=== PATIENT | male | born 1985 | race Caucasian/White ===

== ENCOUNTER 2017-09-18 09:41 | Inpatient (IN) | payer OTHER ==
[~2017-09-18] VITALS: Ht 177.8 cm; Wt 77.1 kg
--- NOTE | 2017-09-18 15:15 | NUR ---
09/18/17 1515 Shira Clay PATIENT ARRIVES TO PACU AWAKE, BUT DROWSY, SLOW TO RESPOND TO QUESTIONS, BUT RESPONDS APPROPRIATELY. RESP EVEN AND UNLABORED, ARRIVES TO PACU ON ROOM AIR.
--- NOTE | 2017-09-18 16:25 | NUR ---
PATIENT TO FLOOR AT ABOUT 1540 VIA STRETCHER. TRANSFER TO BED BY SELF. PATIENT IS A LITTLE DROWZY BUT ALERT AND ORIENTED. PATIENT RATED HIS PAIN AT 4/10 AND DENIES NAUSEA. VS TAKEN AND WNL. NO APPARENT DISTRESS NOTED. PATIENT ORIENTED TO ROOM.ICE WATER AND JUICE GIVEN. PULSE OXYMETER ON. CALL LIGHT IN REACH. WILL CONTINUE TO MONITOR.
--- NOTE | 2017-09-18 16:35 | NUR ---
MED REC COMPLETE, PATIENT TAKES NO HOME MEDICATIONS.
--- NOTE | 2017-09-18 16:45 | NUR ---
PT IS SITTING UP IN BED WITH CALL LIGHT IN REACH. PT HAD A LOW GRADE TEMP, PT WAS REMINDED TO TAKE DEEP BREATHS AND USE HIS IS. PT ASKED IF HE COULD HAVE SOME CHICKEN BROTH.
--- NOTE | 2017-09-18 17:10 | NUR ---
PATIENT WAS MEDICATED BY MENDEZ POTTS. RESTING IN BED AT THIS TIME. NO APPARENT DISTRESS NOTED.
--- NOTE | 2017-09-18 19:05 | NUR ---
PATIENT HAD DONE WELL THIS PM. TOLERATED REGULAR FOOD WELL. NO NAUSEA. REINFORCED DRESSING OVER UMBULIC AND PUBIC SITE. PATIENT VOID QS. NO FEVER. PAIN AT ACCEPTABLE LEVEL. MAY DC TOMORROW
--- NOTE | 2017-09-18 19:10 | NUR ---
SHIFT REPORT RECEIVED. PATIENT RESTING IN BED. HE HAS BEEN EATING SOME OF HIS DINNER. STATES HE HAS NO NAUSEA BUT HAS BEEN EATING SLOWLY. PAIN IS 4/10, WHICH HE SAYS IS TOLLERABLE. FAMILY IN ROOM, PATIENT IS MAKING JOKES AN LAUGHING. APPEARS COMFORTABLE. LAP SITES ARE COVERED WITH GAUZE AND SURGICAL TAPE, SMALL AMOUNT OF SHADOWING NOTED AT UMBILICAL SITE.
--- NOTE | 2017-09-18 20:40 | NUR ---
PATIENT UP TO WALK THE HALLWAY, MADE TWO LAPS. STEADY ON HIS FEET. NO DIZZINESS. RETURNED TO ROOM DUE TO FEELING SORE.
--- NOTE | 2017-09-18 21:24 | NUR ---
Rounding charge nurse note: [place], watching tv, no c.o pain. Abd sites intact, ivf infusing w/o problems, walked hallways w/o help x2 up and around nursing station, tolerated very well
--- NOTE | 2017-09-18 21:26 | NUR ---
EVENING MEDS GIVEN PER ORDER. PATIENT REQUESTING PAIN MEDS FOR ABD PAIN 12/30. PO PERCOCET PROVIDED. PATIENT IS ALERT, VS WNL. TOLERATING ROOM AIR. HAS BEEN PASSING GAS. LAP SITE WNL, NO NEW DRAINAGE. BOWEL SOUNDS ACTIVE. ABD MILDLY DISTENDED. NO NAUSEA. ATE 100% OF HIS DINNER. IV FLUIDS INFUSING PER ORDER, SITE WNL. SCDS IN USE.
--- NOTE | 2017-09-18 22:20 | NUR ---
PATIENT CONTINUES TO REPORT 7/10 PAIN AND APPEARS UNCOMFORTABLE. SECOND TAB OF PERCOCET PROVIDED. PATIENT HAS VAPE PEN SITTING ON HIS BEDSIDE TABLE. RN NOTIFIED HIM OF THE HOSPITALS "NO SMOKING" POLICY, EVEN IF IT IS ELECTRIC. HE STATES "I KNOW, SOMEONE JUST DROPPED IT OFF." RN MOVED IT TO THE CLOSET FOR SAFE KEEPING.
--- NOTE | 2017-09-19 00:51 | NUR ---
PATIENT APPEARS TO BE SLEEPING SOUNDLY. RR 16.
--- NOTE | 2017-09-19 01:50 | NUR ---
PATIENT APPEARED TO BE SLEEPING. AWOKE EASILY TO VOICE. VS COMPLETED, WNL. PATIENT UP TO THE BATHROOM. OUTPUT QS. PATIENT REPORTS SOME DISCOMFORT WITH URINATION, POSSIBLY FROM OLIVER PLACEMENT DURING SURGERY. DRESSING ARE INTACT ON ABD LAP SITE, SMALL AMOUNT OF NEW DRAINAGE NOTED ON UMBILICAL SITE. PATIENT REPORTS GOOD PAIN CONTROL. SCDS IN USE. IV FLUIDS INFUSING, SITE WNL. NO OTHER NEEDS AT THIS TIME.
--- NOTE | 2017-09-19 05:00 | NUR ---
PATIENT REPORTS 7/10 PAIN. PRN PERCOCET PROVIDED. PATIENT DENIES TOILETING NEEDS AT THIS TIME.
--- NOTE | 2017-09-19 05:52 | NUR ---
PATIENT SLEPT MOST OF THE NIGHT. PAIN CONTROLLED WITH PERCOCET X2. NO NAUSEA. ABD IS SOFT, TENDER, AND BOWEL SOUNDS ARE ACTIVE. LAP SITES WERE REENFORCED WITH GAUZE, UMBILICAL SITE HAS SMALL AMOUNT OF NEW DRAINAGE. ORAL INTAKE HAS BEEN GOOD. PATIENT TOELRATED REGULAR DINNER. AMBULATED IN THE HALLWAYS. IV FLUIDS INFUSING. URINE OUTPUT QS. PATIENT REPORTS PASSING GAS.
--- NOTE | 2017-09-19 06:44 | NUR ---
SPOKE WITH ABOUT PATIENT'S CONDITION. NEW ORDERS TO PATIENT.
--- NOTE | 2017-09-19 07:32 | NUR ---
SHIFT REPORT RECEIVED AT BEDSIDE FROM GREGORY. PATIENT AWAKE, A&O RESTING IN BED. REPORTED MILD PAIN, NO NAUSEA. BREAKFAST ORDER. CALL LIGHT IN REACH.
--- NOTE | 2017-09-19 08:20 | NUR ---
PATIENT LAYING IN BED WATCHING TV. SLOWLY EATING HIS BREAKFAST. SET UP FOR SHOWER. SAID HE WOULD LIKE TO TAKE A SHOWER IF OK WITH NURSE.
--- NOTE | 2017-09-19 10:26 | NUR ---
TALKED TO DR HUDDLESTON ABOUT PATIENT TAKING A SHOWER TODAY. SAID NO SHOWER TODAY.
--- NOTE | 2017-09-19 10:44 | NUR ---
PATIENT RESTING IN BED, REPORT MILD PAIN AT THIS TIME. NO NAUSEA.CALL LIGHT IN REACH.
--- NOTE | 2017-09-19 12:06 | NUR ---
DISCUSSED WITH PATIENT AND IMPORTANCE OF HAVING A PCP. PATIENT STATES HE DOES WANT TO FIND ONE. INFORMATION GIVEN WITH CONTACT NUMBERS FOR SEVERAL CLINICS IN [facility]. DISCUSSED HOW TO CALL AND ARRANGE NEW PATIENT APPOITNTMENTS. BOTH STATE UNDERSTANDING. NO OTHER QUESTIONS AT THIS TIME.
--- NOTE | 2017-09-19 12:58 | NUR ---
PATIENT SITTING IN BED EATING LUNCH. REPORTS PAIN WITH COUGHING. DENIES NAUSEA. MILD SOB. STILL ON ROOM AIR.
--- NOTE | 2017-09-19 13:01 | NUR ---
PATIENT WAS UP WALKING IN THE HALLWAY. BACK TO ROOM AND SITTING IN THE CHAIR. PATIENT REPORTS 8/10 PAIN AT THE INCISION SITE. PATIENT WAS MEDICATED. EATING LUNCH AT THIS TIME. WILL CONTINUE TO MONITOR. CALL LIGHT IN REACH.
--- NOTE | 2017-09-19 14:33 | NUR ---
AARON HUDDLESTON WAS IN ROOM TO EVALUATE PATIENT. PLAN TO D/C PATIENT HOME TODAY.
[2017-09-19] MEDS ORDERED: OXYCODON-ACETA1 EAC2 PO (14:35)
[2017-09-19] MEDS ORDERED: MOTRIN IB200 MG PO (14:35)
[2017-09-19] MEDS ORDERED: TYLENOL325 MG PO (14:35)
[2017-09-19] MEDS ORDERED: ACETAMINOP80 MG/0.8 PO (14:35)
--- NOTE | 2017-09-19 15:03 | NUR ---
PATIENT SITTING UP IN BED, EATING LUNCH. RN JOCELENE IN GOING OVER DISCHARGE ORDERS. PHARMACIST IN . CALL LIGHT IN R.
--- NOTE | 2017-09-21 12:47 | HP ---
[facility] [address], [place] [address] Signed ADMISSION DATE: 09/18/2017 REASON FOR ADMISSION: Closed-loop obstruction of bowel. HISTORY: This is a 31-year-old white man had a fair amount of heavy drinking on Friday (today is ) and on Friday morning was feeling rather poorly. He has essentially had a "hangover." By Friday, he was having abdominal pain in the left upper and epigastric area of the abdomen, which did not improve. He had nausea, vomiting, and so forth. He presented to the emergency room where he was evaluated by Dr. Orlando and CT scan was performed, which shows probable small bowel obstruction with closed loop in the left upper abdomen. Of note, he has never had abdominal surgery in the past. PAST MEDICAL HISTORY: Does include apparent testicular torsion, which was resolved without operative intervention. He also has had tonsillectomy. He last ATE anything significant on Friday. He has been given some fluids and Zosyn antibiotic. MEDICATIONS: At time of admission include Pepto-Bismol and ibuprofen. ALLERGIES: He has no known drug allergies. SOCIAL HISTORY: He is . He has 2 children. 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 REVIEW OF SYSTEMS: He denies any shortness of breath or chest pain. He has had no dysphagia or dysuria. Denies any hematemesis. Has had nausea and vomiting. PHYSICAL EXAMINATION: GENERAL: A thin and healthy-appearing white male with a berg. HEENT: Trachea is midline. Mucous membranes are slightly dry. CHEST: Clear. Electronically Signed By: ELODIA HUDDLESTON MD 09/21/17 1247 PATIENT NAME: CAROL ANN CASTANEDA HISTORY AND PHYSICAL DATE OF : [birth year] REPORT #: [id number] PHYSICIAN: ELODIA HUDDLESTON MD PCP: NO PRIMARY CARE PHYSICIAN REPORT IS CONFIDENTIAL AND NOT TO BE RELEASED WITHOUT AUTHORIZATION [facility] [address], [place] [address] Signed HEART: Regular without murmur. ABDOMEN: Scaphoid, flat, and nontender largely although mild tenderness in the left upper abdomen. There is no ascites. EXTREMITIES: Show no clubbing, cyanosis, or edema. LABORATORY DATA: Show white count of 10.5, hematocrit 41.4, platelets 279,000. Chem profile essentially normal. Glucose is 103. Liver enzymes normal. Lipase, amylase normal. Urinalysis shows specific gravity of 1.020, pH of 7, otherwise normal. I have reviewed the CT scan. The report is reviewed as well. Interpretation by Dr. Liz Sheikh include some mild dilation with air-fluid levels. Several segments of small bowel localized in the upper abdomen associated with a swirling of the mesenteric vessel. This is considered that consistent with closed-loop obstruction versus localized volvulus. It is peculiar that he would have such a finding without prior operative intervention (adhesions, etc.), but other causes can be present including congenital causes adhesive bands and enteric diverticula and other unusual causes. I have recommended expedient resuscitation and laparoscopy, possible laparotomy to remedy the problem whatever its cause might be. I discussed with him the risks of bleeding, infection, need for open procedure and other unforeseen complications related to operation. He understands and wished to proceed. Elodia Huddleston MD JM/MODL /[id number] cc: Ousmane Orlando DO Copies: OUSMANE ORLANDO DO ~ Electronically Signed By: ELODIA HUDDLESTON MD 09/21/17 1247 PATIENT NAME: CAROL ANN CASTANEDA LISSET HISTORY AND PHYSICAL DATE OF : [birth year] REPORT #: [id number] PHYSICIAN: ELODIA HUDDLESTON MD PCP: NO PRIMARY CARE PHYSICIAN REPORT IS CONFIDENTIAL AND NOT TO BE RELEASED WITHOUT AUTHORIZATION
--- NOTE | 2017-09-21 12:47 | DS ---
[facility] [address], [place] [address] Signed ADMISSION DATE: 09/18/2017 DISCHARGE DATE: 09/19/2017 REASON FOR ADMISSION: This 31-year-old white man is admitted with suspicion of internal hernia, possibly segmental volvulus, and was admitted for further evaluation and care. He was drinking rather heavily on Friday and by Friday morning was feeling quite poorly. He essentially had a "hangover." On Friday, he was having abdominal pain in the left upper and epigastric area of the abdomen, which did not improve. He had nausea, vomiting, and so forth. He ultimately presented to the emergency room and was evaluated by Dr. Ousmane Orlando . A CT scan was performed showing what appeared to be a "swirl sign" of mesenteric blood vessels in the left upper abdomen. He did have dilated loops of bowel as well. He was considered possible to have internal hernia or other cause of segmental volvulus and on that basis, emergency admission was deemed appropriate. PERTINENT PHYSICAL EXAMINATION: GENERAL: Show a pleasant white man, who had a thick berg. HEENT: Mucous membranes are slightly dry. CHEST: Clear. HEART: Regular without murmur. ABDOMEN: Flat and scaphoid and nontender. Largely, he did have mild tenderness in the left upper abdomen. There is no ascites. LABORATORY DATA: White count was 10.5, hematocrit 41.4, and platelets 279,000. Chem profile normal. Glucose 103. Liver enzymes normal. Lipase and amylase were normal. Urinalysis was essentially normal. I reviewed the CT scan with Dr. Sheikh, radiologist and the findings as described were noted. HOSPITAL COURSE: He was aggressively fluid resuscitated, given broad-spectrum antibiotic Zosyn and readied for operation. He was taken emergently to operation, where he underwent laparoscopy. He did have segments of small bowel that appeared to be inflamed consistent with serositis, particularly in the upper small bowel, but careful running of the bowel from the terminal ileum proximally to the ligament of Treitz showed no evidence of volvulus or segmental vascular compromise in any way and no sign of internal hernia. Electronically Signed By: ELODIA HUDDLESTON MD 09/21/17 1247 PATIENT NAME: CAROL ANN CASTANEDA DISCHARGE SUMMARY DATE OF : [birth year] REPORT #: [id number] PHYSICIAN: ELODIA HUDDLESTON MD PCP: NO PRIMARY CARE PHYSICIAN REPORT IS CONFIDENTIAL AND NOT TO BE RELEASED WITHOUT AUTHORIZATION [facility] [address], [place] [address] Signed The appendix was somewhat injected and on that basis was resected. He promptly had marked improvement to his clinical situation after operation. He was able to eat right away, showed no evidence of problem and is ready for discharge at this time. It is noted that the appendix that was resected, although it was injected, did not have suppuration particularly. It was opened as there was a palpable fecalith in it.Indeed a hard fecalith was seen. Photographs were taken confirming that finding. DISCHARGE MEDICATIONS: His discharge medications will include: 1. Percocet 7.5/325, 1 to 2 p.o. q.4 hours p.r.n. pain, #14. 2. Ibuprofen 600 mg p.o. q.6 hours p.r.n. pain, #30. 3. Tylenol plain 325 mg p.o. q.6 hours as needed for pain, #30. FOLLOWUP PLAN: He is return to see me in approximately a month. He is okay to return to work when he feels ready, but to lift no more than 20 pounds for the next 2 weeks, no matter if he is at work or at home. DISCHARGE DIAGNOSES: 1. Acute serositis, possibly related to binge drinking several days prior to current admission. 2. Spurious finding on CT scan of possible internal hernia or volvulus. 3. Status post laparoscopic evaluation of abdomen and appendectomy for injected appendix. MD ADELA Mcdaniel/MODL /[id number] cc: DO Liz Curtis MD Electronically Signed By: ELODIA HUDDLESTON MD 09/21/17 1247 PATIENT NAME: CAROL ANN CASTANEDA DISCHARGE SUMMARY DATE OF : [birth year] REPORT #: [id number] PHYSICIAN: ELODIA HUDDLESTON MD PCP: NO PRIMARY CARE PHYSICIAN REPORT IS CONFIDENTIAL AND NOT TO BE RELEASED WITHOUT AUTHORIZATION [facility] [address] [place] [id number] Signed Copies: OUSMANE ORLANDO CYNTHIA SUE MD ~ Electronically Signed By: ELODIA HUDDLESTON MD 09/21/17 1247 PATIENT NAME: LEONELSARAYCAROL ANN LISSET DISCHARGE SUMMARY DATE OF : 89 REPORT #: [id number] PHYSICIAN: ELODIA HUDDLESTON MD PCP: NO PRIMARY CARE PHYSICIAN REPORT IS CONFIDENTIAL AND NOT TO BE RELEASED WITHOUT AUTHORIZATION
--- NOTE | 2017-09-21 12:47 | OR ---
[facility] [facility] [address] [place], [place] [address] Signed DATE OF OPERATION: 09/18/2017 SURGEON: Elodia Huddleston MD PREOPERATIVE DIAGNOSIS: Small bowel obstruction with internal closed-loop obstruction (swirl sign with mesentery left upper quadrant). POSTOPERATIVE DIAGNOSES: 1. Acute SEROSITIS without sign of volvulus or bowel obstruction. 2. Injected appendix with fecalith. PROCEDURE: 1. Diagnostic laparoscopy with evaluation of the small bowel from terminal ileum to ligament of Treitz. 2. Laparoscopic appendectomy. ANESTHESIA: General endotracheal, Yarelis Kena, SALES CLERK [employer] and local 10 mL of 0.25% Marcaine with epinephrine. INDICATION: This is a 31-year-old white man was drinking excessively on Friday (today is ). The following day on Friday, he was feeling rather "hung over" and not well particularly. By Friday, he was having persistent left upper abdominal pain, which has been unrelenting over the week. He is really not eating much and has had nausea and vomiting. He presented to the emergency room early in the day today and was evaluated by Dr. Kodak Orlando. He was not found to have distention, but a CT scan of the abdomen was performed, which showed some dilated bowel in the left upper quadrant with mesenteric vascularity showing a "swirl sign suggestive of internal hernia or segmental volvulus." His white count was normal. Electrolytes were normal, but he did have pain and tenderness in the area. A great note, he has never had any abdominal surgery of any sort nor abdominal trauma. He has had a torsion of a testicle in the past, which spontaneously resolved and has had tonsillectomy. 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 Given the findings and concern for internal herniation with compromise of small bowel, particularly given the "swirl sign" expedient resuscitation has been undertaken and anticipating laparoscopy and as necessary laparotomy. The patient understands the risks of bleeding, infection, failure of diagnosis, missed diagnosis, need for other indicated Electronically Signed By: ELODIA HUDDLESTON MD 09/21/17 1247 PATIENT NAME: CAROL ANN CASTANEDA OPERATIVE REPORT DATE OF : [birth year] REPORT #: [id number] PHYSICIAN: ELODIA HUDDLESTON MD PCP: NO PRIMARY CARE PHYSICIAN REPORT IS CONFIDENTIAL AND NOT TO BE RELEASED WITHOUT AUTHORIZATION [facility] [address], [place] [address] Signed procedures including open procedures and wishes to proceed. FINDINGS: There was acute serositis of several loops of bowel, but no sign of bowel obstruction proper. There was no sign of internal herniation, volvulus or other particular issue that would account for the CT scan findings. His stomach and gallbladder were normal. The mesentery itself was not edematous inflamed or thickened. There was no evidence of small bowel obstruction. There was inflammatory change of the serosa of the bowel consistent with acute serositis. There was no carcinomatosis or purulence within the abdomen. The colon was normal. The appendix itself was injected on appearance and on that basis was excised. Once excised, it was noted to have a palpable fecalith in the midportion. Photographs were taken of this. Additionally, the mesentery of the appendix had a small nodule, which was probably lymph node on that is not certain. He did not have mesenteric adenitis based on inspection. The laparoscopic approach was maintained avoiding a midline laparotomy. DESCRIPTION OF PROCEDURE: The patient was brought to the operating room, given a general endotracheal anesthetic. Preoperative antibiotic Zosyn had been administered. Sequential compression device stockings were used and heparin subcutaneously administered. A Hernández catheter was placed. The abdomen was clipped and prepped with chlorhexidine solution and draped sterilely. An infraumbilical incision was made and using an open Sp cannula technique, the pneumoperitoneum was achieved to a level of 14 mmHg of carbon dioxide gas. Intraabdominal inspection showed no sign of ascites or carcinomatosis. Immediately noted was the tip of the appendix, which was somewhat injected, but there was no sign of purulence associated with it. An epigastric 12 mm port was placed and manipulation of the cecum and the ileum was undertaken. A suprapubic 5 mm port was then placed under direct visualization. With two hand manipulation, endoscopic evaluation of the small bowel was undertaken. The antimesenteric fat pad of Treves was elevated and the appendix had an injected look, but not purulent or particularly thickened. The small bowel was carefully run from the terminal ileum more proximally to the ligament of Treitz. This was a long and laborious process as usual. There were areas of bowel that appeared completely normal and others that appeared slightly dilated and inflamed. There was no sign of creeping fat or anything to suggest inflammatory bowel disease proper. Ultimately, the fossa near the ligament of Treitz was identified. There was no evidence of herniation there. The mesentery of the small bowel was entirely normal. The bowel was then walked antegrade from the proximal jejunum distalward to the terminal ileum. Again showing no sign of internal herniation, Meckel's diverticulum or other problem. There were areas of transitioning normal bowel to dilated bowel that had inflammatory change, but nothing to significant really. Electronically Signed By: ELODIA HUDDLESTON MD 09/21/17 1247 PATIENT NAME: CAROL ANN CASTANEDA OPERATIVE REPORT DATE OF : [birth year] REPORT #: [id number] PHYSICIAN: ELODIA HUDDLESTON MD PCP: NO PRIMARY CARE PHYSICIAN REPORT IS CONFIDENTIAL AND NOT TO BE RELEASED WITHOUT AUTHORIZATION [facility] [address] [place] [id number] Signed Attention was turned towards the appendix. Given its injected appearance and uncertain of the etiology of his abdominal pain for the past few days. An appendectomy was deemed appropriate. The appendix was elevated. A window created between it and the mesoappendix. Using an Endo-CYDNEY stapling device, the mesoappendix was transected. This skeletonized the appendix well in the base. The appendix was transected flushed with the cecum using the Endo-CYDNEY stapling device. Minimal bleeding at the site was secured with electrocautery. Irrigation was undertaken showing good hemostasis. Reinspection of the abdominal contents was undertaken. The gallbladder appeared normal as did the liver. The trocars were then removed under direct visualization showing no sign of bleeding. The infraumbilical fascial incision was reapproximated with interrupted 0 Vicryl suture. All wounds were copiously irrigated with saline solution, 10 mL of 0.25% Marcaine with epinephrine was injected locally for postoperative analgesic benefit. The skin was closed with interrupted 3-0 Vicryl and Steri-Strips were applied. The patient was ultimately extubated and transferred to recovery in good condition having suffered no complications. Sponge, needle, and counts reported as correct x3. Elodia Huddleston MD /XIL /[id number] cc: MD Ousmane Krause DO Copies: LORENA DALTON MD,OUSMANE TY DO ~ Electronically Signed By: ELODIA HUDDLESTON MD 09/21/17 1247 PATIENT NAME: CAROL ANN CASTANEDA LISSET OPERATIVE REPORT DATE OF : [birth year] REPORT #: [id number] PHYSICIAN: ELODIA HUDDLESTON MD PCP: NO PRIMARY CARE PHYSICIAN REPORT IS CONFIDENTIAL AND NOT TO BE RELEASED WITHOUT AUTHORIZATION
== END 2017-09-19 15:30 | disposition home or self-care (01) | DRG 343 ==
LOC: ED 09:41 → MS 12:31
PROVIDERS: ADMIT Surgery
PROC: 0DTJ4ZZ Resection of Appendix, Percutaneous Endoscopic Approach (ICD-10-PCS; principal; 2017-09-18 12:52)
DX: K65.8 Other peritonitis (principal); K38.1 Appendicular concretions; F10.10 Alcohol abuse, uncomplicated; K38.8 Other specified diseases of appendix; F17.290 Nicotine dependence, other tobacco product, uncomplicated
CPT/HCPCS: 00840; 71045; 74177; 80053; 81001; 82150; 83690; 83735; 85025; 94762; 96374; 96375; 96376; 99285; J0330; J0735; J1100; J1170; J1644; J1885; J2250; J2270; J2405; J2543; J2704; J3475; J7030; J7120; Q9967